=== PATIENT | female | born 1990 | race Caucasian/White ===

== ENCOUNTER 2019-09-28 05:37 | Outpatient (RCR) | payer BC ==
[~2019-09-28] VITALS: Ht 160 cm; Wt 101.0 kg
== END 2019-09-28 10:55 | disposition home or self-care (01) ==
LOC: PREOP 05:37
PROVIDERS: ATTEND Obstetrics & Gynecology
DX: Z01.818 Encounter for other preprocedural examination (principal)

== ENCOUNTER → 2019-09-28 | Outpatient (CLI) | payer BC ==
[~2019-09-28] MED LIST: PREN1TAB79 PO
== END ==
LOC: LAB FS 10:46
PROVIDERS: ATTEND Obstetrics & Gynecology
DX: Z01.818 Encounter for other preprocedural examination (principal); Z11.59 Encounter for screening for other viral diseases
CPT/HCPCS: 87635

== ENCOUNTER 2019-10-01 05:35 | Inpatient (IN) | payer BC ==
[~2019-10-01] VITALS: Ht 160 cm; Wt 102.5 kg
[2019-10-01] VITALS (7 sets, daily range): BP systolic 88–101; BP diastolic 52–68
[2019-10-01] MEDS ORDERED: ceFAZolin 2 GM IV Premixed 50 ML ONE (05:41)
[2019-10-01] MEDS ORDERED: FAMOTIDINE 20MG/2ML IV (PEPCID) ONE (05:41)
[2019-10-01] MEDS ORDERED: CITRIC ACID/SOB CIT (BICITRA) 30 ML UDC ONE (05:41)
[2019-10-01] MEDS ORDERED: METOCLOPRAMIDE INJ 10 MG/2 ML (REGLAN) ONE (05:41)
--- NOTE | 2019-10-01 05:45 | NUR ---
GUSTAVO KING presented to unit via ambulation from home/ED, accompanied by SO, for REPEAT . GUSTAVO KING weighed, gowned, voided, and to bed. EFHM and TOCO applied, VS taken. GUSTAVO KING oriented to bed controls, call light, TV, heat, and A/C controls.
[2019-10-01] MEDS ORDERED: LACTATED RINGERS 1,000 ML IV SCH ×2 (05:50)
--- OUTSIDE RECORDS SUMMARY | 2019-10-01 05:55 | XMS REPORT | Continuity of Care Document ---
Author Organization Unknown Address Unknown Phone Unavailable Allergies Active Description Code Type Severity Reaction Onset Reported/Identified Relationship to Patient Clinical Status Yes morphine [id number] Drug Allergy Moderate "GETS ANGRY" 09/24/2019 Yes Sulfa (Sulfonamide Antibiotics) [id number] 0491 Drug Allergy Severe SYNCOPE 2019 Medications There is no data. Problems Date Dx Coded Attending Type Code Diagnosis Diagnosed By 03/07/1054 PRABHJOT SILVA DO, Ot Z01.8 18 ENCOUNTER FOR OTHER PREPROCEDURAL EXAMIN 09/29/2019 PRABHJOT SILVA DO, Ot Z01.8 18 ENCOUNTER FOR OTHER PREPROCEDURAL EXAMIN 09/29/2019 PRABHJOT SILVA DO, Ot Z11.5 9 ENCOUNTER FOR SCREENING FOR OTHER VIRAL Procedures There is no data. Results Test Result Range SUREPATH PAP RFX HPV mRNA E6/E7 - 14:25 CLINICAL INFORMATION: NRG LMP: IUD NRG PREV. PAP: NRG PREV. BX: NRG SOURCE: Endocervix NRG STATEMENT OF ADEQUACY: NRG INTERPRETATION/RESULT: NRG LEAF FAT SCRAPER: NRG COMMENT NRG GC/CHLAMYDIA (SWAB OR URINE)-RAPID - 13:31 CHLAMYDIA TRACHOMATIS RNA, TMA NOT DETECTED NOT DETECTED NEISSERIA GONORRHOEAE RNA, TMA NOT DETECTED NOT DETECTED COMMENT NRG HIV ANTIGEN/ANTIBODY - 02/18/19 14:54 HIV AG/AB, 4TH GEN NON-REACTIVE NON-RUDOLPH CTIVE CBC - 02/18/19 14:54 WHITE BLOOD CELL COUNT 5.9 Thousand/uL 3 .8-10.8 RED BLOOD CELL COUNT 4.37 Million/uL 3.8 0-5.10 HEMOGLOBIN 13.0 g/dL 11.7-15.5 HEMATOCRIT 39.3 % 35.0-45.0 MCV 89.9 fL 80.0-100.0 MCH 29.7 pg 27.0-33.0 MCHC 33.1 g/dL 32.0-36.0 RDW 12.0 % 11.0-15.0 PLATELET COUNT 237 Thousand/uL 140-400 MPV 12.0 fL 7.5-12.5 ABSOLUTE NEUTROPHILS 3900 cells/uL 1500- 7800 ABSOLUTE LYMPHOCYTES 1564 cells/uL 850-3 900 ABSOLUTE MONOCYTES 325 cells/uL 200-950 ABSOLUTE EOSINOPHILS 83 cells/uL 15-500 ABSOLUTE BASOPHILS 30 cells/uL 0-200 NEUTROPHILS 66.1 % NRG LYMPHOCYTES 26.5 % NRG MONOCYTES 5.5 % NRG EOSINOPHILS 1.4 % NRG BASOPHILS 0.5 % NRG BLOOD TPYE/RH FACTOR - 02/18/19 14:54 ABO GROUP O NRG RH TYPE RH(D) POSITIVE NRG ANTIBODY SCREEN - 02/18/19 14:54 ANTIBODY SCREEN, RBC W/REFL ID, TITER AND AG NO ANTIBODIES DETECTED NRG SYPHILIS (RPR W/ REFLEX CONFIRMATION) - 02/18/19 14:54 RPR (DX) W/REFL TITER AND CONFIRMATORY TESTING NON-REACTIVE NON-REACTIVE HEP B SURFACE ANTIGEN - 02/18/19 14:54 HEPATITIS B SURFACE ANTIGEN NON-REACTIVE NON-REACTIVE RUBELLA IMMUNE STATUS - 02/18/19 14:54 RUBELLA ANTIBODY (IGG) 1.85 index NRG GC/CHLAMYDIA (SWAB OR URINE)-RAPID - 14:56 CHLAMYDIA TRACHOMATIS RNA, TMA NOT DETECTED NOT DETECTED NEISSERIA GONORRHOEAE RNA, TMA NOT DETECTED NOT DETECTED COMMENT NRG CBC - 07/21/19 15:23 WHITE BLOOD CELL COUNT 6.1 Thousand/uL 3 .8-10.8 RED BLOOD CELL COUNT 3.95 Million/uL 3.8 0-5.10 HEMOGLOBIN 11.8 g/dL 11.7-15.5 HEMATOCRIT 35.3 % 35.0-45.0 MCV 89.4 fL 80.0-100.0 MCH 29.9 pg 27.0-33.0 MCHC 33.4 g/dL 32.0-36.0 RDW 12.8 % 11.0-15.0 PLATELET COUNT 185 Thousand/uL 140-400 MPV 12.5 fL 7.5-12.5 ABSOLUTE NEUTROPHILS 4240 cells/uL 1500- 7800 ABSOLUTE LYMPHOCYTES 1360 cells/uL 850-3 900 ABSOLUTE MONOCYTES 397 cells/uL 200-950 ABSOLUTE EOSINOPHILS 92 cells/uL 15-500 ABSOLUTE BASOPHILS 12 cells/uL 0-200 NEUTROPHILS 69.5 % NRG LYMPHOCYTES 22.3 % NRG MONOCYTES 6.5 % NRG EOSINOPHILS 1.5 % NRG BASOPHILS 0.2 % NRG SYPHILIS (RPR W/ REFLEX CONFIRMATION) - 07/21/19 15:23 RPR (DX) W/REFL TITER AND CONFIRMATORY TESTING NON-REACTIVE NON-REACTIVE CULTURE, GROUP B STREP (VAGINAL) - 09/02 13:33 STREPTOCOCCUS, GROUP B CULTURE SEE NOTE NRG Coronavirus SARS-CoV-2 SO 2019 - 0 10:40 Coronavirus Ab [Units/volume] in Serum Negative Negative Encounters ACCT No. Visit Date/Time Discharge Status Pt. Type Provider Facility Loc./Unit Complaint [id number] 09/25/2019 09:45:00 09/25/2019 23:59:5 9 [facility] Outpatient [facility] [id number] 09/03/2019 13:30:00 Document Registration [id number] 07/21/2019 14:15:00 Document Registration [id number] 02/18/2019 13:31:00 Document Registration [id number] 02/18/2019 13:15:00 Document Registration [id number] 11/25/2018 14:00:00 Document Registration [id number] 09/28/2019 05:37:00 020 10:55:00 DIS Outpatient PRABHJOT SILVA DO [facility] PREOP PREVIOUS [id number] 10/01/2019 07:30:00 P EN Preadmit PRABHJOT SILVA DO R EPEAT C- SECTION [id number] 09/28/2019 10:46:[address] Outpatient PRABHJOT SILVA DO [facility] LAB FS PRE SURG REQ
[2019-10-01] MEDS ORDERED: FAMOTIDINE 20MG/2ML IV (PEPCID) IV ONE (06:00)
[2019-10-01] MEDS ORDERED: ceFAZolin 2 GM IV Premixed 50 ML IV ONE (06:00)
[2019-10-01] MEDS ORDERED: CITRIC ACID/SOB CIT (BICITRA) 30 ML UDC PO ONE (06:00)
[2019-10-01] MEDS ORDERED: METOCLOPRAMIDE INJ 10 MG/2 ML (REGLAN) IV ONE (06:00)
[2019-10-01 06:33] LABS: BASOPHILS % (AUTO) 0 % (0-10); EOSINOPHILS # (AUTO) 0.1 10^3/uL (0.0-0.3); EOSINOPHILS % (AUTO) 1 % (0-10); HEMATOCRIT 37 % (35-52); HEMOGLOBIN 12.1 G/DL (11.5-16.0); LYMPHOCYTES # (AUTO) 1.5 X 10^3 (1.0-4.0); LYMPHOCYTES % (AUTO) 28 % (12-44); MEAN CORPUSCULAR HEMOGLOBIN 29 PG (25-34); MEAN CORPUSCULAR HGB CONC 33 G/DL (32-36); MEAN CORPUSCULAR VOLUME 90 FL (80-99); MEAN PLATELET VOLUME 12.1 FL (7.4-10.4); MONOCYTES # (AUTO) 0.5 X 10^3 (0.0-1.0); MONOCYTES % (AUTO) 8 % (0-12); NEUTROPHILS # (AUTO) 3.4 X 10^3 (1.8-7.8); NEUTROPHILS % (AUTO) 63 % (42-75); PLATELET COUNT 175 10^3/uL (130-400); WHITE BLOOD COUNT 5.4 10^3/uL (4.3-11.0)
--- NOTE | 2019-10-01 07:25 | History & Physical-OB/GYN ---
History of Present Illness History of Present Illness Reason for visit/HPI Ms. Weeks, A0 at 39 weeks gestation is admitted for a Repeat Date of Admission Oct 01, 2019 at 05:35 Date Seen by a Provider: Oct 01, 2019 Time Seen by a Provider: 07:00 I consulted on this patient on 10/01/19 07:21 Attending Physician Regan Hinton DO Admitting Physician Regan Hinton DO Consult Allergies and Home Medications Allergies Coded Allergies: Sulfa (Sulfonamide Antibiotics) (Verified Allergy, Severe, SYNCOPE, 09/23) morphine (Verified Allergy, Intermediate, "GETS ANGRY", 09/24/19) Home Medications Vit W-Ca,Fe,FA(<1 mg) 1 Each Tablet, 1 EACH PO DAILY, (Reported) Patient Home Medication List Home Medication List Reviewed: Yes Past Esausdw-Xjjoac-Iiqrpj Hx Patient Social History Marrital Status: single Number of Children: 1 Number of living children: 1 Employed/Student: employed Alcohol Use: Denies Use Recreational Drug Use: No Smoking Status: Never a Smoker Physical Abuse Screen: No Sexual Abuse: No Recent Foreign Travel: No Contact w/other who traveled: No Recent Hopitalizations: No Recent Infectious Disease Expo: No Seasonal Allergies Seasonal Allergies: Yes (MILD) Surgeries Yes (R ANKLE) Respiratory No Cardiovascular No Neurological No Reproductive System Expected Date of Delivery: Oct 08, 2019 Sexually Transmitted Disease: No HIV/AIDS: No Female Reproductive Disorders: Denies Genitourinary No Gastrointestinal Yes Gastroesophageal Reflux Musculoskeletal No Endocrine History of Endocrine Disorders: No HEENT History of HEENT Disorders: No Loss of Vision: Denies Hearing Impairment: Denies Cancer Yes (PRE-CANCEROUS) Skin Did You Recieve Any Treatments: Yes Psychosocial History of Psychiatric Problem: No Integumentary History of Skin or Integumenta: No Blood Transfusions History of Blood Disorders: No Adverse Reaction to a Blood Tr: No (N/A) Family Medical History Family Hx: Diabetes mellitus 19 FATHER Review of Systems Constitutional: see HPI Physical Exam Physical Exam Vital Signs Capillary Refill : Labs Laboratory Tests 10/01/19 05:56: White Blood Count 5.4, Red Blood Count 4.14L, Hemoglobin 12.1, Hematocrit 37, Mean Corpuscular Volume 90, Mean Corpuscular Hemoglobin 29, Mean Corpuscular Hemoglobin Concent 33, Red Cell Distribution Width 15.0H, Platelet Count 175, Mean Platelet Volume 12.1H, Neutrophils (%) (Auto) 63, Lymphocytes (%) (Auto) 28, Monocytes (%) (Auto) 8, Eosinophils (%) (Auto) 1, Basophils (%) (Auto) 0, Neutrophils # (Auto) 3.4, Lymphocytes # (Auto) 1.5, Monocytes # (Auto) 0.5, Eosinophils # (Auto) 0.1, Basophils # (Auto) 0.0 General Appearance: No Apparent Distress, WD/WN Respiratory: Chest Non Tender, Lungs Clear, Normal Breath Sounds Cardiovascular: Regular Rate, Rhythm, No Murmur Abdominal: normal bowel sounds, non tender Labia: WNL Vagina: WNL Uterus: WNL, Enlarged (Gravid) Extremity: Normal Inspection, Non Tender, No Calf Tenderness Assessment/Plan Assessment and Plan Intrauterine at 39 weeks 2. Previous Admission Diagnosis Admission Status: Inpatient Order (span 2 midnights) Reason for Inpatient Admission: Scheduled Repeat Clinical Quality Measures DVT/VTE Risk/Contraindication: Risk Factor Score Per Nursin RFS Level Per Nursing on Admit: 1=Low/No VTE PPX REGAN HINTON DO Oct 01, 2019 07:25
[2019-10-01] MEDS ORDERED: OXYTOCIN PRE-MIX DRIP 500 ML IV SCH (08:32)
[2019-10-01] MEDS ORDERED: ONDANSETRON 4 MG/2 ML (SDV) Z0FRAN IVP PRN (08:45)
[2019-10-01] MEDS ORDERED: TETANUS,DIPTH,PERTUSS P/F (BOOSTRIX) 0.5 ML VIAL IM SCH (08:45)
[2019-10-01] MEDS ORDERED: MEASLES,MUMPS,RUBELLA 1 EA INJ SC SCH (08:45)
[2019-10-01] MEDS ORDERED: fentaNYL INJECTION 100 MCG/2 ML AMP IVP PRN (08:45)
--- NOTE | 2019-10-01 08:46 | Cesarean Section Operative ---
Procedure Procedure Note Pre-operative Diagnosis: Jes Weeks is a (31 /Para / ,Gestational Age (wks)39 with [previous ] Post-operative Diagnosis: same [] Procedure: [Repeat] low transverse section Physician: PRABHJOT SILVA Fish And Wildlife Technician: [None] Estimated blood loss: [360] mL Disposition: [Recovery Room] Findings: Viable [Male] infant, Apgars [], weight [], intact placenta, 3vc, normal appearing uterus, tubes, and ovaries. Indications:Jes Weeks is a (29 /Para 2/1 ,Gestational Age (wks) 39 presenting for [Repeat ]. Procedure Details: The patient was seen in pre-op and the procedure was discussed with the patient in full, including the risks, benefits, and alternatives. All questions were answered. The patient was taken to the operating room and a time out was performed, verifying patient and procedure. After spinal anesthesia was placed by our anesthesia colleagues, the patient was placed in the dorsal supine with leftward tilt for uterine displacement.~ Her abdomen was then prepped and draped in the typical sterile fashion. An elliptical skin incision was made over her previous skin scar using a scalpel (old scar removed) and carried down through the underlying fascia. The fascia was incised in the midline and tented up using Josesito clamps. On both the inferior and superior fascia side the rectus muscle was dissected off bluntly and sharply using Camacho scissors. The peritoneum was identified and entered bluntly in the midline. This was then stretched laterally using manual strength. After entering the abdominal cavity and confirming lack of intraperitoneal adhesions, a large Suresh retractor was placed and the lower uterine segment was visualized. A bladder flap was created with the use of Metzenbaum scissors.~ A scalpel was utilized to make a low transverse uterine incision. Amniotomy was performed with an Allis clamp with return of clear fluid. The 's head was grasped and brought to the level of the incision--immediately orally and nasally suctioned at that time. Fundal pressure was applied and was delivered without difficulty. After the umbilical cord was clamped and cut, the was handed off to the pediatric staff where NRP protocol was followed. A sample of cord blood was then obtained. The placenta was delivered intact via uterine massage. The uterus was exteriorized and cleared of all clots and debris. The uterine incision was closed using 0 Vicryl in a running locked fashion. A second imbricated layer was placed using 0 Vicryl in a running fashion as well. The uterus was flexed forward and the posterior rectouterine space was inspected and cleared of all clots and debris. The vesicouterine peritoneum was approximated with 3-0 Vicryl. Again the hysterotomy site was examined and hemostasis was observed. The bilateral tubes and ovaries appeared normal. The uterus was placed back into the abdominal cavity and abdominal gutters were cleared of all clots and debris. A final check of the uterine incision showed it to be hemostatic. The peritoneum was closed using 3-0 Vicryl in a running fashion. The fascia was closed with 0 Vicryl in a running fashion. The subcutaneous space was hemostatic, and irrigated. The subcutaneous space was closed with 3-0 Vicryl in several single interrupted stitch in a running manner. A pressure dressing was applied. All sponge, lap and needle counts were correct at the end of the procedure per nursing. Vitals - Labs Labs Laboratory Tests 10/01/19 05:56: White Blood Count 5.4, Red Blood Count 4.14L, Hemoglobin 12.1, Hematocrit 37, Mean Corpuscular Volume 90, Mean Corpuscular Hemoglobin 29, Mean Corpuscular Hemoglobin Concent 33, Red Cell Distribution Width 15.0H, Platelet Count 175, Mean Platelet Volume 12.1H, Neutrophils (%) (Auto) 63, Lymphocytes (%) (Auto) 28, Monocytes (%) (Auto) 8, Eosinophils (%) (Auto) 1, Basophils (%) (Auto) 0, Neutrophils # (Auto) 3.4, Lymphocytes # (Auto) 1.5, Monocytes # (Auto) 0.5, Eosinophils # (Auto) 0.1, Basophils # (Auto) 0.0 PRABHJOT SILVA DO Oct 01, 2019 08:46
[2019-10-01] MEDS: KETOROLAC 30 MG/ML VIAL IV SCH ×3 (09:57→21:25)
[2019-10-01] MEDS: ACETAMINOPHEN 500 MG TAB (TYLENOL) PO SCH ×3 (09:58→21:26)
[2019-10-01] MEDS: METOCLOPRAMIDE 10 MG (REGLAN) TAB PO SCH (09:58)
[2019-10-01] MEDS: DOCUSATE SODIUM 100 MG (COLACE) CAP PO SCH ×2 (09:58→21:26)
[2019-10-01] MEDS ORDERED: LORazepam INJ 2 MG/ML (ATIVAN) VIAL IVP ONE (11:00)
[2019-10-01] MEDS ORDERED: CATHETER FLUSH 10 ML SYR IV SCH (14:00)
[2019-10-01] MEDS ORDERED: ZOLPIDEM 5 MG (AMBIEN) TAB PO SCH (21:00)
[2019-10-02 00:33] VITALS: BP 96/54
[2019-10-02] MEDS: METOCLOPRAMIDE 10 MG (REGLAN) TAB PO SCH ×2 (00:33→04:59)
[2019-10-02 04:57] VITALS: BP 104/57
[2019-10-02] MEDS: KETOROLAC 30 MG/ML VIAL IV SCH (04:58)
[2019-10-02] MEDS: ACETAMINOPHEN 500 MG TAB (TYLENOL) PO SCH ×3 (04:59→17:10)
[2019-10-02] MEDS ORDERED: MILK OF MAGNESIA 400 MG/5 ML 30 ML UDC PO ONE (05:00)
[2019-10-02] MEDS ORDERED: BISACODYL 10 MG SUPP (DULCOLAX) PR ONE (05:00)
--- NOTE | 2019-10-02 05:30 | NUR ---
Pt reports bm and first void since catheter removal at this time, pt flushed toilet.
[2019-10-02 05:35] LABS: BASOPHILS % (AUTO) 0 % (0-10); EOSINOPHILS # (AUTO) 0.1 10^3/uL (0.0-0.3); EOSINOPHILS % (AUTO) 2 % (0-10); HEMATOCRIT 34 % (35-52); HEMOGLOBIN 10.8 G/DL (11.5-16.0); LYMPHOCYTES # (AUTO) 1.3 X 10^3 (1.0-4.0); LYMPHOCYTES % (AUTO) 27 % (12-44); MEAN CORPUSCULAR HEMOGLOBIN 30 PG (25-34); MEAN CORPUSCULAR HGB CONC 32 G/DL (32-36); MEAN CORPUSCULAR VOLUME 92 FL (80-99); MEAN PLATELET VOLUME 12.1 FL (7.4-10.4); MONOCYTES # (AUTO) 0.4 X 10^3 (0.0-1.0); MONOCYTES % (AUTO) 8 % (0-12); NEUTROPHILS # (AUTO) 3.1 X 10^3 (1.8-7.8); NEUTROPHILS % (AUTO) 63 % (42-75); PLATELET COUNT 134 10^3/uL (130-400); WHITE BLOOD COUNT 4.9 10^3/uL (4.3-11.0)
--- NOTE | 2019-10-02 07:56 | Anesthesia-Regional Post-Op ---
Regional Patient Condition Mental Status: Alert, Oriented x3 Circulation: Same as Pre-Op Headache: Absent Sensation: Full Recovery Motor Block: Absent Post Op Complications Complications None Follow Up Care/Instructions Patient Instructions None needed. Anesthesia/Patient Condition Patient is doing well, no complaints, stable vital signs, no apparent adverse anesthesia problems. No complications reported per nursing. ISHMAEL LAST CRNA Oct 02, 2019 07:56
[2019-10-02] MEDS ORDERED: IBUP-1780 PO ×2 (10:24)
[2019-10-02] MEDS ORDERED: OXYC5TAB96 PO ×2 (10:24)
[2019-10-02] MEDS ORDERED: ACET-93 PO ×2 (10:24)
[2019-10-02] MEDS ORDERED: DCS100C PO ×2 (10:24)
--- NOTE | 2019-10-02 10:30 | Discharge Summary ---
Diagnosis/Chief Complaint Date of Admission Oct 01, 2019 at 05:35 Date of Discharge October 02, 2019 Discharge Date: Oct 02, 2019 Discharge Time: 12:00 Admission Diagnosis Admission Diagnosis Intrauterine at 39 weeks 2. Previous Discharge Diagnosis Intrauterine at 39 weeks 2. Previous Reason Hospital Visit Ms. Weeks, A0 at 39 weeks gestation is admitted for a Repeat Discharge Summary Hospital Course Was the Problem List Reviewed?: Yes Hospital Course Ms. Weeks was admitted for a Repeat . No other health concerns on admissions. The procedure was performed without complications Postoperatively, she was started on IV and oral pain medications along with other comfort measures. Postoperative Day #1 found Ms. Weeks ambulating, voiding, moving her bowels, tolerating a Regular Diet, and controlling her pain with oral medications. The remainder her hospitalization was unremarkable. Her vital signs remained stable throughout her hospitalization. We are going to discharge her to home with instructions, prescriptions, and a follow up appointment. Labs Laboratory Tests 10/01/19 05:56: Red Blood Count 4.14L, Red Cell Distribution Width 15.0H, Mean Platelet Volume 12.1H 10/02/19 05:12: Red Blood Count 3.64L, Red Cell Distribution Width 15.0H, Mean Platelet Volume 12.1H, Hemoglobin 10.8L, Hematocrit 34L Procedures None. Discharge Physical Examination Allergies: Coded Allergies: Sulfa (Sulfonamide Antibiotics) (Verified Allergy, Severe, SYNCOPE, 09/24/19) morphine (Verified Allergy, Intermediate, "GETS ANGRY", 09/24/19) Vitals & I&Os Vital Signs Date Time Temp Pulse Resp B/P (MAP) Pulse Ox O2 Delivery O2 Flow Rate FiO2 10/02/19 04:57 37.0 65 20 104/57 (73) 97 Room Air General Appearance: Alert, Oriented X3, Cooperative HEENT: Atraumatic Respiratory: Clear to Auscultation, Normal Air Movement Cardiovascular: Regular Rate, No Murmurs Abdominal: Normal Bowel Sounds, Soft Extremities: No Clubbing, No Cyanosis Skin: No Rashes Neuro: Normal Gait, Normal Speech Psych/Mental Status: Mental Status NL Discharge Home Medications Reviewed and agree with Discharge Medication list on patient's Discharge Instruction sheet Instructions to Patient/Family Please see electronic discharge instructions given to patient. Clinical Quality Measures DVT/VTE Risk/Contraindication: Risk Factor Score Per Nursin RFS Level Per Nursing on Admit: 1=Low/No VTE PPX PRABHJOT SILVA DO Oct 02, 2019 10:30
[2019-10-02] MEDS: DOCUSATE SODIUM 100 MG (COLACE) CAP PO SCH (11:08)
[2019-10-02] MEDS: IBUPROFEN 800 MG (MOTRIN) TAB PO SCH ×2 (11:09→17:10)
[2019-10-02 11:15] VITALS: BP 107/73
--- NOTE | 2019-10-02 18:58 | NUR ---
GUSTAVO KING demonstrates understanding of discharge instructions and accurately returns instructions upon questioning. Copy of Post-Discharge Instructions and Medication Discharge Instructions given to patient. GUSTAVO KING is able to manage continuing needs after discharge. Patients belongings returned to patient. Skin dry and intact; no breakdown noted. Patient discharged from 331- on 10-02-19 at 1858. CJ KINGFELIX Robison remains in room 313 with infant who didnt d/c today.
== END 2019-10-02 18:58 | disposition home or self-care (01) | DRG 788 ==
LOC: LDRP 05:35
PROVIDERS: ADMIT Obstetrics & Gynecology; ATTEND Obstetrics & Gynecology
PROC: 10D00Z1 Extraction of Products of Conception, Low, Open Approach (ICD-10-PCS; principal; 2019-10-01 07:19)
DX: O34.211 Maternal care for low transverse scar from previous cesarean delivery (principal); Z37.0 Single live birth; Z3A.39 39 weeks gestation of pregnancy; Z88.5 Allergy status to narcotic agent; Z88.2 Allergy status to sulfonamides
CPT/HCPCS: 36415; 85025; 86850; 86900; 86901; 87081; 94664

== ENCOUNTER 2019-10-03 12:26 | Emergency (ER) | payer BC ==
[~2019-10-03] VITALS: Ht 160 cm; Wt 99.0 kg
[~2019-10-03 12:26] MED LIST changes: +ACET-93 PO; +DCS100C PO; +IBUP-1780 PO; +OXYC5TAB96 PO
--- OUTSIDE RECORDS SUMMARY | 2019-10-03 12:31 | XMS REPORT | Continuity of Care Document ---
Author Organization Unknown Address Unknown Phone Unavailable Allergies Active Description Code Type Severity Reaction Onset Reported/Identified Relationship to Patient Clinical Status Yes morphine [id number] Drug Allergy Moderate "GETS ANGRY" 09/24/2019 Yes Sulfa (Sulfonamide Antibiotics) [id number] 0491 Drug Allergy Severe SYNCOPE 2019 Medications [...] NRG STATEMENT OF ADEQUACY: NRG INTERPRETATION/RESULT: NRG BEADWORKER: NRG COMMENT NRG GC/CHLAMYDIA (SWAB OR URINE)-RAPID [...] Coronavirus Ab [Units/volume] in Serum Negative Negative Complete blood count (CBC) with automate d white blood cell (WBC) differential - 10/01/19 05:56 Blood leukocytes automated count (number/volume) 5.4 10*3/uL 4.3-11.0 Blood erythrocytes automated count (number/volume) 4.14 10*6/uL 4.35-5.85 Venous blood hemoglobin measurement (mass/volume) 12.1 g/dL 11.5-16.0 Blood hematocrit (volume fraction) 37 % 35-52 Automated erythrocyte mean corpuscular volume 90 [ foz_us] 80-99 Automated erythrocyte mean corpuscular h emoglobin (mass per erythrocyte) 29 pg 25-34 Automated erythrocyte mean corpuscular h emoglobin concentration measurement (mass/volume) 33 g/dL 32-36 Automated erythrocyte distribution width ratio 15. 0 % 10.0- 14.5 Automated blood platelet count (count/volume) 175 10*3/uL 130-400 Automated blood platelet mean volume measurement 12.1 [foz_us] 7.4-10.4 Automated blood neutrophils/100 leukocytes 63 % 42-75 Automated blood lymphocytes/100 leukocytes 28 % 12-44 Blood monocytes/100 leukocytes 8 % 0-12 Automated blood eosinophils/100 leukocytes 1 % 0-10 Automated blood basophils/100 leukocytes 0 % 0-10 Blood neutrophils automated count (number/volume) 3.4 10*3 1.8-7.8 Blood lymphocytes automated count (number/volume) 1.5 10*3 1.0-4.0 Blood monocytes automated count (number/volume) 0. 5 10*3 0.0-1.0 Automated eosinophil count 0.1 10*3/uL 0 .0-0.3 Automated blood basophil count (count/volume) 0.0 10*3/uL 0.0-0.1 Blood type T Indirect antibody screen pa jane - 10/01/19 05:56 WRISTBAND NUMBER [id number] NRG ABO+Rh group OP NRG Blood group antibody screen NEGATIVE NR G Complete blood count (CBC) with automate d white blood cell (WBC) differential - 10/02/19 05:12 Blood leukocytes automated count (number/volume) 4.9 10*3/uL 4.3-11.0 Blood erythrocytes automated count (number/volume) 3.64 10*6/uL 4.35-5.85 Venous blood hemoglobin measurement (mass/volume) 10.8 g/dL 11.5-16.0 Blood hematocrit (volume fraction) 34 % 35-52 Automated erythrocyte mean corpuscular volume 92 [ foz_us] 80-99 Automated erythrocyte mean corpuscular h emoglobin (mass per erythrocyte) 30 pg 25-34 Automated erythrocyte mean corpuscular h emoglobin concentration measurement (mass/volume) 32 g/dL 32-36 Automated erythrocyte distribution width ratio 15. 0 % 10.0- 14.5 Automated blood platelet count (count/volume) 134 10*3/uL 130-400 Automated blood platelet mean volume measurement 12.1 [foz_us] 7.4-10.4 Automated blood neutrophils/100 leukocytes 63 % 42-75 Automated blood lymphocytes/100 leukocytes 27 % 12-44 Blood monocytes/100 leukocytes 8 % 0-12 Automated blood eosinophils/100 leukocytes 2 % 0-10 Automated blood basophils/100 leukocytes 0 % 0-10 Blood neutrophils automated count (number/volume) 3.1 10*3 1.8-7.8 Blood lymphocytes automated count (number/volume) 1.3 10*3 1.0-4.0 Blood monocytes automated count (number/volume) 0. 4 10*3 0.0-1.0 Automated eosinophil count 0.1 10*3/uL 0 .0-0.3 Automated blood basophil count (count/volume) 0.0 10*3/uL 0.0-0.1 Encounters ACCT No. Visit Date/Time Discharge Status Pt. Type Provider Facility Loc./Unit Complaint [id number] 09/25/2019 09:45:00 09/25/2019 23:59:5 9 [facility] [id number] 09/03/2019 13:30:00 Document Registration [id number] 07/21/2019 14:15:00 Document Registration [id number] 02/18/2019 13:31:00 Document Registration [id number] 02/18/2019 13:15:00 Document Registration [id number] 11/25/2018 14:00:00 Document Registration [id number] 10/01/2019 05:35:00 18:58:00 DIS Inpatient SEALS PRABHJOT SALTER [facility] LDRP REPEAT [id number] 09/28/2019 10:46:00 23:59:59 CLS Outpatient SEALPRABHJOT Armas DO [facility] LAB FS PRE SURG REQ [id number] 09/28/2019 05:37:00 10:55:00 DIS Outpatient SEALS PRABHJOT SALTER E [facility] PREOP PREVIOUS
[2019-10-03] MEDS ORDERED: NS IV 1000 ML 1,000 ML IV ONE (13:01)
--- NOTE | 2019-10-03 13:09 | ED Headache ---
General Chief Complaint: Head/Cervical Problems Stated Complaint: HEADACHE Nursing Triage Note: ARRIVED VIA AMB WITH COMPLAINS OF HEADACHE. SPINAL ON SATURDAY AND RECENTLY DC FROM HOSPITAL. PT STATES [facility] WAS TO COME BEFORE SHE WAS DISCHARGED BUT THEY DID NOT COME. PT STATES SHE TOOK IBUPROFEN AND TYLENOL AT 8 OR 9 THIS AM. Nursing Sepsis Screen: No Definite Risk Source: patient Exam Limitations: no limitations History of Present Illness Date Seen by Provider: Oct 03, 2019 Time Seen by Provider: 12:55 Initial Comments This 29-year-old young lady presents to the emergency room on postoperative day number 2 from section. She received a spinal block for the procedure. Yesterday she developed headache that is much more intense when sitting up and especially when standing. She is concerned about spinal headache. She took Motrin 800 mg and Tylenol 09:00 without much benefit. She contacted Dr. Hinton who recommended she come to the ER for a blood patch. Allergies and Home Medications Allergies Coded Allergies: Sulfa (Sulfonamide Antibiotics) (Verified Allergy, Severe, SYNCOPE, 09/24/19) morphine (Verified Allergy, Intermediate, "GETS ANGRY", 09/24/19) Home Medications Acetaminophen 500 Mg Tablet, 1,000 MG PO Q6HR Prescribed by: PRABHJOT HINTON on 10/02/19 1024 Docusate Sodium 100 Mg Capsule, 100 MG PO BID Prescribed by: PRABHJOT HINTON on 10/02/19 1024 Ibuprofen 800 Mg Tablet, 800 MG PO Q8H Prescribed by: PRABHJOT HINTON on 10/02/19 1024 Oxycodone HCl 5 Mg Tablet, 5 MG PO Q4HR PRN for To achieve TAG Prescribed by: PRABHJOT HINTON on 10/02/19 1024 Vit W-Ca,Fe,FA(<1 mg) 1 Each Tablet, 1 EACH PO DAILY, (Reported) Patient Home Medication List Home Medication List Reviewed: Yes Review of Systems Review of Systems Constitutional: no symptoms reported Eyes: No Symptoms Reported Ears, Nose, Mouth, Throat: no symptoms reported Respiratory: no symptoms reported Cardiovascular: no symptoms reported Gastrointestinal: no symptoms reported Genitourinary: see HPI : No Musculoskeletal: no symptoms reported Skin: no symptoms reported Psychiatric/Neurological: See HPI Past [id number] Hx Past Med/Social Hx: Reviewed Nursing Past Med/Soc Hx Patient Social History Alcohol Use: Denies Use Recreational Drug Use: No Smoking Status: Never a Smoker Recent Foreign Travel: No Contact w/Someone Who Travel: No Recent Infectious Disease Expo: No Recent Hopitalizations: No Seasonal Allergies Seasonal Allergies: Yes (MILD) Past Medical History Surgeries: Yes (R ANKLE) Appendectomy, Section, Orthopedic Respiratory: No Cardiac: No Neurological: No Female Reproductive Disorders: Denies Sexually Transmitted Disease: No HIV/AIDS: No Genitourinary: No Gastrointestinal: Yes Gastroesophageal Reflux Musculoskeletal: No Endocrine: No HEENT: No Loss of Vision: Denies Hearing Impairment: Denies Cancer: Yes (PRE-CANCEROUS) Skin Did You Recieve Any Treatments: Yes Psychosocial: No Integumentary: No Blood Disorders: No Adverse Reaction/Blood Tranf: No (N/A) Family Medical History Reviewed Nursing Family Hx Diabetes mellitus 19 FATHER Physical Exam Vital Signs Vital Signs - First Documented 10/03/19 12:58 Temp 36.8 Pulse 62 Resp 16 B/P (MAP) 125/79 (94) Pulse Ox 98 O2 Delivery Room Air Capillary Refill : Less Than 3 Seconds Height, Weight, BMI Height: '" Weight: lbs. oz. kg; 38.00 BMI Method: General Appearance: WD/WN, mild distress HEENT: PERRL/EOMI, normal ENT inspection Neck: normal inspection Cardiovascular: regular rate, rhythm, no edema, no murmur Respiratory: lungs clear, normal breath sounds, no respiratory distress Gastrointestinal: normal bowel sounds, non tender, soft Extremities: normal inspection, no pedal edema Psychiatric: alert, oriented x 3 Crainal Nerves: normal hearing, normal speech, PERRL Coordination/Gait: normal gait Motor/Sensory: no motor deficit Skin: normal color, warm/dry Progress/Results/Core Measures Results/Orders Lab Results Laboratory Tests Test 10/03/19 13:08 Range/Units White Blood Count 4.7 4.3-11.0 10^3/uL Red Blood Count 3.88 L 4.35-5.85 10^6/uL Hemoglobin 11.4 L 11.5-16.0 G/DL Hematocrit 36 35-52 % Mean Corpuscular Volume 92 80-99 FL Mean Corpuscular Hemoglobin 29 25-34 PG Mean Corpuscular Hemoglobin Concent 32 32-36 G/DL Red Cell Distribution Width 15.0 H 10.0-14.5 % Platelet Count 167 130-400 10^3/uL Mean Platelet Volume 11.8 H 7.4-10.4 FL Neutrophils (%) (Auto) 68 42-75 % Lymphocytes (%) (Auto) 22 12-44 % Monocytes (%) (Auto) 8 0-12 % Eosinophils (%) (Auto) 3 0-10 % Basophils (%) (Auto) 0 0-10 % Neutrophils # (Auto) 3.2 1.8-7.8 X 10^3 Lymphocytes # (Auto) 1.0 1.0-4.0 X 10^3 Monocytes # (Auto) 0.4 0.0-1.0 X 10^3 Eosinophils # (Auto) 0.2 0.0-0.3 10^3/uL Basophils # (Auto) 0.0 0.0-0.1 10^3/uL Sodium Level 141 135-145 MMOL/L Potassium Level 3.9 3.6-5.0 MMOL/L Chloride Level 110 H 98-107 MMOL/L Carbon Dioxide Level 21 21-32 MMOL/L Anion Gap 10 5-14 MMOL/L Blood Urea Nitrogen 7 7-18 MG/DL Creatinine 0.72 0.60-1.30 MG/DL Estimat Glomerular Filtration Rate > 60 BUN/Creatinine Ratio 10 Glucose Level 80 70-105 MG/DL Calcium Level 8.3 L 8.5-10.1 MG/DL Corrected Calcium 9.1 8.5-10.1 MG/DL Total Bilirubin 0.3 0.1-1.0 MG/DL Aspartate Amino Transf (AST/SGOT) 21 5-34 U/L Alanine Aminotransferase (ALT/SGPT) 14 0-55 U/L Alkaline Phosphatase 131 40-136 U/L Total Protein 5.4 L 6.4-8.2 GM/DL Albumin 3.0 L 3.2-4.5 GM/DL My Orders Orders - MIRANDA LYNNE MD Cbc With Automated Diff (10/03/19 13:01) Comprehensive Metabolic Panel (10/03/19 13:01) Ed Iv/Invasive Line Start (10/03/19 13:01) Fentanyl Injection (Sublimaze Injection (10/03/19 13:15) Ns Iv 1000 Ml (Sodium Chloride 0.9%) (10/03/19 13:01) Anesthesia Consult (10/03/19 14:24) Medications Given in ED Vital Signs/I&O 10/03/19 10/03/19 12:58 15:23 Temp 36.8 Pulse 62 78 Resp 16 16 B/P (MAP) 125/79 (94) 122/81 Pulse Ox 98 99 O2 Delivery Room Air Room Air Blood Pressure Mean: 94 Progress Progress Note #1: Time: 13:08 Progress Note Basic labs will be obtained and patient will be treated with IV hydration and fentanyl. Anesthesia is being consulted for possible blood patch. Progress Note #2: Progress Note Anesthesia successfully performed a blood patch with improvement in symptoms. Patient was discharged home after sufficient observation after the procedure. Departure Impression Primary Impression: Spinal headache Disposition: 01 HOME, SELF-CARE Condition: Improved Departure-Patient Inst. Decision time for Depature: 15:02 Referrals: NO,LOCAL PHYSICIAN (PCP/Family) Primary Care Physician Patient Instructions: Spinal Headache Add. Discharge Instructions: Increase fluid intake and temporarily increased salt and caffeine intake. Keep activities calm with no strenuous activity for the remainder of the day. Rest lying down if possible. Return to care or call your administrative volunteer or anesthesiologist if you have worsening symptoms again. You may continue using ibuprofen and Tylenol for pain. All discharge instructions reviewed with patient and/or family. Voiced understanding. Copy Copies To 1: PRABHJOT HINTON JOSHUA T MD Oct 03, 2019 13:09
[2019-10-03] MEDS ORDERED: fentaNYL INJECTION 100 MCG/2 ML AMP IVP ONE (13:15)
[2019-10-03 13:16] LABS: BASOPHILS % (AUTO) 0 % (0-10); EOSINOPHILS # (AUTO) 0.2 10^3/uL (0.0-0.3); EOSINOPHILS % (AUTO) 3 % (0-10); HEMATOCRIT 36 % (35-52); HEMOGLOBIN 11.4 G/DL (11.5-16.0); LYMPHOCYTES % (AUTO) 22 % (12-44); MEAN CORPUSCULAR HEMOGLOBIN 29 PG (25-34); MEAN CORPUSCULAR HGB CONC 32 G/DL (32-36); MEAN CORPUSCULAR VOLUME 92 FL (80-99); MEAN PLATELET VOLUME 11.8 FL (7.4-10.4); MONOCYTES # (AUTO) 0.4 X 10^3 (0.0-1.0); MONOCYTES % (AUTO) 8 % (0-12); NEUTROPHILS # (AUTO) 3.2 X 10^3 (1.8-7.8); NEUTROPHILS % (AUTO) 68 % (42-75); PLATELET COUNT 167 10^3/uL (130-400); WHITE BLOOD COUNT 4.7 10^3/uL (4.3-11.0)
[2019-10-03 13:28] LABS: CHLORIDE 110 MMOL/L (98-107); POTASSIUM 3.9 MMOL/L (3.6-5.0); SODIUM 141 MMOL/L (135-145)
[2019-10-03 13:29] LABS: CALCIUM 8.3 MG/DL (8.5-10.1)
[2019-10-03 13:30] LABS: GLUCOSE 80 MG/DL (70-105); TOTAL PROTEIN 5.4 GM/DL (6.4-8.2)
[2019-10-03 13:31] LABS: CARBON DIOXIDE 21 MMOL/L (21-32)
[2019-10-03 13:32] LABS: BILIRUBIN,TOTAL 0.3 MG/DL (0.1-1.0)
[2019-10-03 13:33] LABS: ALKALINE PHOSPHATASE 131 U/L (40-136); CREATININE SERUM 0.72 MG/DL (0.60-1.30); GFR ESTIMATED > 60
[2019-10-03 13:35] LABS: BUN/CREATININE RATIO 10
[2019-10-03 13:36] LABS: ALANINE AMINOTRANSFERASE 14 U/L (0-55)
--- NOTE | 2019-10-03 14:19 | NUR ---
CARLOS [facility] HERE TO SEE PT.
--- NOTE | 2019-10-03 14:45 | NUR ---
BLOOD PATCH COMPLETE ET PT LAYING SUPINE.
[2019-10-03 15:23] VITALS: BP 122/81
--- NOTE | 2019-10-03 15:30 | Anesthesia-Procedure Note ---
Procedures/Interventions Procedure Start/Stop/Diagnosis Date of Procedure: Oct 03, 2019 Start Time: 14:15 Preprocedural Diagnosis: Post-dural puncture headache Brief History Recent C/Section delivery that now complains of a Headache Stop Time: 14:45 Postprocedural Diagnosis: Post-Dural Puncture Headache Blood Patch Blood Patch Called to the Emergency Department for a patient with a possible post-dural puncture headache from a C/Section on 09/30. The room was dark upon entering with patient laying flat on her back. Spoke with patient about symptoms. Reported headache in front, above her eyes an nose that is worse when she sets up. Pain in her neck and soreness in her shoulders and also a sensitivity to light. The patient stated the symptoms started yesterday morning or afternoon. I agree that these are classic symptoms of a PDPH. Spoke with patient about the risks and benefits having a blood patch and she which to proceed with the procedure. Consent signed. Patient to sitting position. Hips and Back palpated to ID L-4. Puncture sited noted from what I assume is the spinal placement for her C/Section. L3/4 interspace ID. Epidural kit opened. Sterile gloves donned. Beta prep x 3. 1% Lidocaine 3cc for skin localization at the L3/4 Interspace. Epudural needle 17g Tuohy, placed with several redirects to a ROSA at approx 7cm. -CSF -Hem -Paresthesia. RN ten 20cc of blood sterile. Handed to myself, and injected 20cc of blood though Tuohy in to epidural space. Patient laid flat immediately after. Tolerated procedure well. CARLOS HAMMONDS CRNA Oct 03, 2019 15:30
--- NOTE | 2019-10-03 15:34 | Progress Note ---
Standard Progress Note Progress Notes/Assess & Plan Date Seen by a Provider: Oct 03, 2019 Time Seen by a Provider: 14:50 Final Diagnosis Patient stated headache was much better. Sat patient HOB up to about 20 degrees headache still better. Let patient know she need to stay flat for another 20 min . To take it easy the rest of the day. Do not pick anything up heavier that a gallon of milk. No twisting, pulling, or pushing. Continue to hydrate, increase caffeine intake and sodium intake for the rest of the day. No complications noted. Patient care to ED RN. CARLOS HAMMONDS CRNA Oct 03, 2019 15:34
== END 2019-10-03 15:23 | disposition home or self-care (01) ==
LOC: EDUNIT# 12:26 → ER 12:27
DX: O89.4 Spinal and epidural anesthesia-induced headache during the puerperium (principal); Z88.2 Allergy status to sulfonamides; Z88.5 Allergy status to narcotic agent; Z85.828 Personal history of other malignant neoplasm of skin
CPT/HCPCS: 36415; 80053; 85025